=== PATIENT | female | born 1965 | race African-American/Black ===

== ENCOUNTER 2018-03-08 16:17 | Emergency (ER) | payer BC ==
[2018-03-08 16:30] VITALS: PULSE 76; TEMP 97.7; BMI 26.6
--- NOTE | 2018-03-08 16:33 | PDOC ---
Rapid Medical Evaluation Medical Evaluation: I have performed a brief in-person evaluation of this patient. The patient presents with a chief complaint of: Plucked mole along throat today with tweezers and noted heavy bleeding which wasn't stopping Site examined and dot of blood noted and no heavy bleeding noted. Patient advised to apply pressure Patient would like to go home giving bleeding has subsided. 03/08/18 16:26
[2018-03-08 16:35] VITALS: BP 156/90
--- NOTE | 2018-03-08 16:49 | PDOC ---
History of Present Illness - General Chief Complaint: Wound Stated Complaint: EVALUATION History Source: Patient Exam Limitations: No Limitations - History of Present Illness Initial Comments: 52 y/o F presents after plucking mole along throat with tweezer today and noting bleeding. States bleeding was heavy and was not stopping. Patient is not on blood thinners. Denies fever, dizziness, sob, cp, other complaints 03/08/18 16:46 Past History - Past Medical History Allergies/Adverse Reactions: Allergies Allergy/AdvReac Type Severity Reaction Status Date / Time amoxicillin Allergy Verified 03/08/18 16:26 ibuprofen [From Advil] Allergy Verified 03/08/18 16:26 Penicillins Allergy Verified 03/08/18 16:26 Home Medications: Ambulatory Orders Olmesartan/Hydrochlorothiazide [Olmesartan-Hctz 20-12.5 mg Tab] 1 each PO DAILY 03/08/18 COPD: No HTN: Yes - Suicide/Smoking/Psychosocial Hx Smoking History: Never smoked Review of Systems - Review of Systems Comments:: See HPI 03/08/18 16:48 *Physical Exam - Vital Signs Last Vital Signs Temp Pulse Resp BP Pulse Ox 97.7 F 76 18 156/90 99 03/08/18 16:28 03/08/18 16:28 03/08/18 16:28 03/08/18 16:28 03/08/18 16:28 - Physical Exam Comments: Patient appears in NAD Dot of blood noted along throat; no further bleeding noted; gauze applied to throat Lungs CTA B/L Cardio RRR 03/08/18 16:48 Medical Decision Making - Medical Decision Making 52 y/o F presents s/p bleeding after plucking on mole along throat. Bleeding has now subsided. Gauze applied. patient stable for d/c 03/08/18 16:48 *DC/Admit/Observation/Transfer Diagnosis at time of Disposition: Minor open wound - Discharge Dispostion Disposition: HOME Condition at time of disposition: Good Decision to Admit order: No - Referrals - Patient Instructions Additional Instructions: Thank you for choosing [facility]. It was a pleasure taking care of you. You were seen here for prior active bleeding from trauma which has now subsided. Return to the Emergency Department if your symptoms worsen or persist, you have fever, increased bleeding, signs of infection (such as redness around skin, pustular discharge) or other concerning symptoms. - Post Discharge Activity
== END 2018-03-08 16:55 | disposition home or self-care (01) ==
LOC: JER 16:17
DX: D22.4 Melanocytic nevi of scalp and neck (principal); S11.89XA Other open wound of other specified part of neck, initial encounter; X58.XXXA Exposure to other specified factors, initial encounter; Y93.89 Activity, other specified; Y92.038 Other place in apartment as the place of occurrence of the external cause; Y99.8 Other external cause status
CPT/HCPCS: 99281-25